=== PATIENT | male | born 1990 | race Hispanic/Latino ===

== ENCOUNTER 2021-08-21 21:34 | Emergency (ER) | payer BC ==
[~2021-08-21] VITALS: Ht 167.6 cm; Wt 65.0 kg
[~2021-08-21 21:34] MED LIST: LORTAB 5 OR; ULTRAM50 M1 PO
[2021-08-21] MEDS ORDERED: FENOFIBRATE145 MG PO (22:08)
[2021-08-21] MEDS ORDERED: MEDDOSEPAK PO (22:19)
[2021-08-21] MEDS ORDERED: VALTREX1 GM PO (22:19)
[2021-08-21 23:32] VITALS: BP 127/77
== END 2021-08-21 23:40 | disposition home or self-care (01) | DRG 74 ==
LOC: ED 21:34
DX: G51.0 Bell's palsy (principal)